=== PATIENT | male | born 2000 | race Two or more races ===

== ENCOUNTER 2019-09-07 17:43 | Emergency (ER) | payer OTHER ==
[~2019-09-07] VITALS: Ht 170.2 cm; Wt 86.2 kg
== END 2019-09-07 19:01 | disposition home or self-care (01) ==
LOC: ER 17:43
DX: M94.0 Chondrocostal junction syndrome [Tietze] (principal)

== ENCOUNTER 2021-08-22 11:42 | Emergency (ER) | payer OTHER ==
[~2021-08-22] VITALS: Ht 170.2 cm; Wt 107.0 kg
== END 2021-08-22 16:04 | disposition home or self-care (01) ==
LOC: ER 11:42
DX: R07.89 Other chest pain (principal); M94.0 Chondrocostal junction syndrome [Tietze]

== ENCOUNTER 2023-02-06 17:51 | Emergency (ER) | payer OTHER ==
[~2023-02-06] VITALS: Ht 170.2 cm; Wt 95.3 kg
[2023-02-06] MEDS ORDERED: DICLOFENAC POTA50 MG PO (19:59)
== END 2023-02-06 20:34 | disposition home or self-care (01) ==
LOC: ER 17:51
DX: S59.901A Unspecified injury of right elbow, initial encounter (principal); W19.XXXA Unspecified fall, initial encounter; Y93.9 Activity, unspecified; Y92.9 Unspecified place or not applicable; Y99.9 Unspecified external cause status; M12.5 Traumatic arthropathy

== ENCOUNTER 2023-11-09 08:33 | Emergency (ER) | payer OTHER ==
[~2023-11-09] VITALS: Ht 170.2 cm; Wt 96.2 kg
[~2023-11-09 08:33] MED LIST: DICLOFENAC POTA50 MG PO
[2023-11-09] MEDS ORDERED: ACETIC ACID W/H10 ML OTIC (09:21)
== END 2023-11-09 09:32 | disposition home or self-care (01) ==
LOC: ER 08:34
DX: H73.22 Unspecified myringitis, left ear (principal); Z87.09 Personal history of other diseases of the respiratory system

== ENCOUNTER 2023-12-02 10:41 | Emergency (ER) | payer OTHER ==
[~2023-12-02] VITALS: Ht 170.2 cm; Wt 95.3 kg
[~2023-12-02 10:41] MED LIST changes: +ACETIC ACID W/H10 ML OTIC
[2023-12-02] MEDS ORDERED: OMEPRAZOLE-BIC1 EAC1 PO (11:06)
== END 2023-12-02 12:39 | disposition home or self-care (01) ==
LOC: ER 10:43
DX: R53.81 Other malaise (principal); J06.9 Acute upper respiratory infection, unspecified; Z20.822 Contact with and (suspected) exposure to COVID-19

== ENCOUNTER → 2024-08-20 | Emergency (ER) | payer OTHER ==
[~2024-08-20] VITALS: Ht 170.2 cm; Wt 101.2 kg
[~2024-08-20] MED LIST changes: +OMEPRAZOLE-BIC1 EAC1 PO; +PROTONIX40 MG PO
[2024-08-20 19:20] LABS: COVID-19 AG POSITIVE (NEGATIVE)
[2024-08-20 19:37] LABS: INFLUENZA A AG NEGATIVE (NEGATIVE); INFLUENZA B AG NEGATIVE (NEGATIVE)
== END | disposition home or self-care (01) ==
LOC: ER 17:14
PROVIDERS: General Practice
DX: U07.1 COVID-19 (principal)

== ENCOUNTER → 2025-02-17 | Emergency (ER) | payer OTHER ==
[~2025-02-17] VITALS: Ht 170.2 cm; Wt 99.8 kg
[~2025-02-17] MED LIST changes: +0.9 % SODIUM CHLORIDE 500 ML IV ONE; +FAMOTIDINE/PF 20 MG/2 ML VIAL IV PUSH ONE; +FAMOTIDINE/PF 20 MG/2 ML VIAL ONE; +KETOROLAC TROMETHAMINE 30 MG VIAL IU ONE; +KETOROLAC TROMETHAMINE 30 MG VIAL ONE; +ONDANSETRON HCL 2 MG/ML VIAL IV ONE; +ONDANSETRON HCL 2 MG/ML VIAL ONE
[2025-02-17 08:31] LABS: BASO % 0.9 % (0.1-1.2); EOS # 0.50 (0.04-0.54); EOS % 5.9 % (0.7-7.0); LYMPH # 3.94 (1.18-3.74); LYMPH % 46.5 % (19.3-53.1); MEAN PLATELET VOLUME 11.00 fl (9.4-12.4); MONO # 0.60 (0.24-0.82); MONO % 7.1 % (4.7-12.5); NEUT # 3.34 (1.56-6.13); NEUT % 39.4 % (34.0-71.1); RED CELL DISTRIBUTION WIDTH 13.4 % (11.6-14.4)
[2025-02-17 08:52] LABS: BUN CREA RATIO 16.0 (7.0-25.0); CREATININE SERUM 0.88 mg/dL (0.70-1.30); GFR 105.51; GLUCOSE FASTING 101.0 mg/dL (65-100); OSMOLALITY SERUM 287.0 MOSM/KG (275-295)
[2025-02-17 09:14] LABS: COVID-19 AG NEGATIVE (NEGATIVE)
== END | disposition home or self-care (01) ==
LOC: ER 06:41
PROVIDERS: Emergency Medicine
DX: R07.9 Chest pain, unspecified (principal); R51.9 Headache, unspecified; J45.909 Unspecified asthma, uncomplicated; K29.70 Gastritis, unspecified, without bleeding; Z20.822 Contact with and (suspected) exposure to COVID-19